=== PATIENT | female | born 1980 | race Caucasian/White ===

== ENCOUNTER 2024-05-19 16:31 | Outpatient (CLI) | payer OTHER, SELFPAY | END 2024-05-19 16:32 | disposition home or self-care (01) | LOC: ANHLAB 16:34 | PROVIDERS: Visit Provider Anesthesiology | DX: Z01.818 Encounter for other preprocedural examination (principal); N92.0 Excessive and frequent menstruation with regular cycle | CPT/HCPCS: 36415; 86850; 86900; 86901 ==

== ENCOUNTER 2024-05-25 00:25 | Day surgery (SDC) | payer OTHER, SELFPAY ==
--- NOTE | 2024-05-18 17:31 | PC.NURSE ---
Report to the Outpatient Waiting Room, entrance under the green pavilion located off [facility], at time 0600 on date 05/25/24. Planned Procedure Time: 0730. Time changes happen often and if your time is changed the preop area will call you the afternoon before. - You and your visitor will be asked to self-screen and do not enter if you have any COVID symptoms. - A mask is optional within the hospital at this time. Patients may have clear liquids (water, carbonated beverages, clear teas, apple juice) until 3 hours prior to surgery with a maximum of 20 ounces. 0430 - No food from midnight until time of surgery - Infants may have breast milk until 4 hours before surgery, formula 6 hours prior to surgery. - Children will be allowed to drink immediately following surgery. If applicable, please bring a bottle or sippy cup to assist with drinking. Juice, water, soda, and popsicles are readily available. For infants on formula, please bring formula the day of surgery. Pacifiers are allowed. Take the following medications with a SIP of water the morning of surgery: None DO NOT STOP ANY OF YOUR OTHER PRESCRIPTION MEDICATIONS PRIOR TO SURGERY ?EXCEPT THE FOLLOWING Medications to discontinue per physician Please hold multivitamins 3 days prior to your surgery Please no make-up, nail turkmen, hairspray, perfume, deodorant, or body powder the day of surgery. No jewelry (including any body piercings) or valuables the day of surgery, leave them at home. Please take a shower or bath the night before, or the morning of, surgery with an antibacterial soap. Wear comfortable, loose fitting clothing. Children are encouraged to wear pajamas. - Jewelry must be removed prior to entering the operating room. Rings and piercings that are not removed may be cut off. - The hospital will not accept responsibility for valuables. - Please leave all valuables, including medications, at home the day of surgery. If you are going home after surgery, a licensed form setter/driver must drive you home. - NO public transportation without another adult if you receive anesthesia. - We recommend that an adult stay with you for 24 hours following discharge. - We also recommend that you do not drive, make important decision, drink alcoholic beverages, or take any drugs that were not prescribed by your health care provider for at least 24 hours after your discharge time. For Pediatric surgeries, we recommend two adults accompany the child home. Follow any additional instructions given to you from your surgeon. If you or anyone in your household have experienced Covid symptoms in the past week, please notify your surgeon or the nurse liaison at the phone number below for possible testing. Telephone instructions given to Patient- Camelia Jones and asked if any additional questions and then verbalized understanding. Patient advised to call surgeon office or pre surgery nurse liaison [phone] if any additional questions.
[2024-05-18 17:38] VITALS: BMI 26.3
--- NOTE | 2024-05-24 20:28 | PM.IMHP ---
H&P: HPI History of Present Illness Date/Time: 05/24/24 20:28 Chief Complaint: AUB Narrative: Camelia is a 43yo P2002, who presents for surgical management of AUB. She has a h/o RSO; denies any menopausal symptoms. She does report her cycles are regular and quite a bit heavier. She it having a cycle for 5-6 days; days 2-3 and very heavy, changing her tampon about every 30-60 minutes, will pass quarter sized clots. She reports feeling more pelvic pressure and pain during her cycles. She has a normal pap 12/2021. She had a normal EMB 03/2024. She was found to have a fibroid uterus on MAIL ROOM US 02/2024; lab work: normal hormones/tsh, not menopausal, mild iron deficiency. She has a stage 1 left breast cancer (hormone positive) and underwent double mastectomy in 2021; all genetic testing was negative. She did not need radiation or chemo. Review of Systems Constitutional: Constitutional: Denies chills, Denies fever(s) and Denies headache(s) Eyes: Eyes: Denies change in vision ENT: Denies dizziness and Denies headache(s) Cardiovascular: Cardiovascular: Denies chest pain and Denies dyspnea Respiratory: Respiratory: Denies cough and Denies dyspnea Gastrointestinal: Gastrointestinal: Denies abdominal pain and Denies change in stool character Genitourinary: Genitourinary: Reports abnormal menses, Reports menorrhagia, Reports dysmenorrhea, Reports pelvic pain, Denies vaginal discharge, Denies vaginal odor and Denies vaginal pruritus Neurologic: Denies dizziness and Denies headache(s) Psychiatric: Psychiatric: Denies anxiety and Denies depression [facility] Past Medical History Medical History Microcalcification of left breast on mammogram Ovarian cyst Surgical History Surgical History Delivery by section H/O bilateral mastectomy left breast cancer 04/2022 H/O gynecological procedure lap--abdominal wall mass - endometriosis H/O gynecological procedure lap--RSO History of breast surgery reconstruction breast 08/2022 Family History Family History Sibling Breast cancer Carcinoma of colon Grandparent No problems noted. Father Carcinoma of colon Heart disease Mother Lymphoma Social History Social History Smoking status: Never smoker Alcohol intake: current Alcohol use details: couple times a year-socially Substance use: never Substance use type: does not use Do You Feel Safe in your Home?: Yes Lack of Transportation: No Lack of Food: Never True Current Housing: I Have Housing Concerned About Future Housing: No Difficulty Paying Gas/Electric Bills: No Difficulty Paying for Meds: No Currently Unemployed: No Education: Trade/Vocational Certificate Difficulty w/ Childcare or Family Care: No Living arrangements: with family Occupation/Education: other Gender identity (if verbalized by the patient): Female Sexual Orientation (if Verbalized by the Patient): Straight or Heterosexual Spiritual care concerns: No Meds Home Medications and Allergies Home Medications Medication Instructions Recorded Confirmed Type sertraline 50 mg tablet 50 mg PO HS 03/24/24 05/18/24 History multivit with minerals-iron 18 1 tablet PO DAILY 05/18/24 05/18/24 History mg-folic ac 400 mcg-vit K 25 mcg tablet (Adults Multivitamin) Allergies Allergy/AdvReac Type Severity Reaction Status Date / Time iodine Allergy Intermediate Hives Verified 05/18/24 17:19 Penicillins Allergy Mild Rash Verified 05/18/24 17:19 Exam Const: General: cooperative, healthy appearing, comfortable and no acute distress Orientation/consciousness: patient oriented x3 Resp: Effort & Inspection: normal respiratory effort Cardio: Rate: regular rate GI: Inspection: normal to inspection G
[2024-05-25] VITALS (11 sets, daily range): BP systolic 92–116; BP diastolic 52–69; PULSE 55–82; RESP 10–18; TEMP 36.3–37.1; O2SAT 98–100; BMI 26.2
[2024-05-25] MEDS: ACETAMINOPHEN 500 MG TABLET 1000 MG PO ×3 (06:34→19:42)
[2024-05-25] MEDS: KETOROLAC 15 MG/ML VIAL (*BKC) IV PUSH (06:34)
--- NOTE | 2024-05-25 07:11 | WPDANESEPPF ---
Anes - Initial Pre Proc Eval Procedure: Operation Date: 05/25/24 07:30 Proposed Procedures p Robotic Assisted Total Laparoscopic Hysterectomy with Right Salpingectomy, Left Salpingo-oophorectomy - Amara Fenton MD Date/Time: 05/25/24 07:11 Surgeon: Amara Fenton MD Pre Op Diagnosis: Abnormal Uterine Bleeding Patient Data Age: 43 Gender: F Height: 1.75 m Weight: 80.9 kg Allergies Allergy/AdvReac Type Severity Reaction Status Date / Time iodine Allergy Intermediate Hives Verified 05/18/24 17:19 Penicillins Allergy Mild Rash Verified 05/18/24 17:19 Home Medications Medication Instructions Recorded Confirmed Type sertraline 50 mg tablet 50 mg PO HS 03/24/24 05/18/24 History multivit with minerals-iron 18 1 tablet PO DAILY 05/18/24 05/18/24 History mg-folic ac 400 mcg-vit K 25 mcg tablet (Adults Multivitamin) Patient hx anesthesia problems: post op nausea/vomiting Family hx anesthesia problems: none Results Review: All pre-operative results and documents have been reviewed as part of the pre-operative evaluation. [facility] Past Medical History Medical History Microcalcification of left breast on mammogram Ovarian cyst Surgical History Surgical History Delivery by section H/O bilateral mastectomy left breast cancer 04/2022 H/O gynecological procedure lap--abdominal wall mass - endometriosis H/O gynecological procedure lap--RSO History of breast surgery reconstruction breast 08/2022 Family History Family History Sibling Breast cancer Carcinoma of colon Grandparent No problems noted. Father Carcinoma of colon Heart disease Mother Lymphoma Social History Social History Smoking status: Never smoker Alcohol intake: current Alcohol use details: couple times a year-socially Substance use: never Substance use type: does not use Do You Feel Safe in your Home?: Yes Lack of Transportation: No Lack of Food: Never True Current Housing: I Have Housing Concerned About Future Housing: No Difficulty Paying Gas/Electric Bills: No Difficulty Paying for Meds: No Currently Unemployed: No Education: Trade/Vocational Certificate Difficulty w/ Childcare or Family Care: No Living arrangements: with family Occupation/Education: other Gender identity (if verbalized by the patient): Female Sexual Orientation (if Verbalized by the Patient): Straight or Heterosexual Spiritual care concerns: No Anes - Eval Final PreProcedure Day of Procedure 05/25/24 07:11 Patient weight: overweight Heart: regular rate and rhythm Lungs: clear to auscultation Airway: Mallampati scale class II Neurological: alert and oriented Last oral intake: >/= 8 hours ASA classification: II Emergent: no Anesthetic plan: proceed Anesthesia type and monitoring: general ETT and standard monitoring Results Review: All pre-operative results and documents have been reviewed as part of the pre-operative evaluation. Informed Consent: The patient's anesthetic plan and its attendant risks and benefits were discussed with the patient/family/POA. Questions were solicited and answers provided to the satisfaction of the patient/family/POA.
--- NOTE | 2024-05-25 07:13 | WPDHPUPDATE1 ---
History and Physical Update Update Date/Time: 05/25/24 07:13 History and Physical has been reviewed, including an updated exam of the patient. There are NO changes in the patient's condition. Risks, benefits, and alternatives have been discussed and questions answered. Patient agrees to proceed with robotic assisted total laparoscopic hysterectomy, left salpingo-oophorectomy, and cystoscopy.
[2024-05-25] MEDS: ceFAZolin 2 GM/D5W 50 ML 2 GM/50 ML BAG IVPB (07:25)
[2024-05-25] MEDS: metroNIDAZOLE 500 MG/ISO 100ML 500 MG/100 ML BAG 100 MG IVPB (07:32)
[2024-05-25 07:35] LABS: BEDSIDEPREGUCG Negative
[2024-05-25] MEDS: SCOPOLAMINE 1 MG PATCH 1 PATCH TRANSDERM (07:36)
[2024-05-25] MEDS: LACTATED RINGERS 1,000 ML 30 ML IV CONT ×2 (07:36→09:35)
[2024-05-25] MEDS: LIDO 1%/EPINEPHRINE 1:100,000 20 ML VIAL 30 ML INFILTRATE (08:14)
--- NOTE | 2024-05-25 09:30 | W.PM.PROC2 ---
Procedure Note - Detailed Date of Procedure 05/25/24 Pre-op Diagnosis Abnormal Uterine Bleeding Fibroid uterus H/o breast cancer Post-op Diagnosis Same Procedure Performed Robotic assisted total laparoscopic hysterectomy with left salpingo-ooporectomy and cystoscopy Surgeon Amara Fenton MD [employer] Mirza Anesthesia General and Local (20cc of 1% lido w/ epi) Findings Cervix: 3cm, Uterus sounded to 8cm; multiple fibroids noted throughout uterus. H/o right salpingo-oophorectomy in the past. Left ovary adhered to posterior uterus and in posterior cul-de-sac (could not visualize the uterosacral ligaments). Endometriosis noted throughout the pelvis; the sigmoid colon was thickly adhered and the posterior cul-de-sac was not visualized (obliterated/unable to visualize either uterosacral ligaments). Small amount of uterine serosa/scar tissue remained adhered to the posterior vaginal wall in the cul-de-sac as I felt like it was better to leave a small amount of tissue than damage the colon necessitating a colostomy-- vaginally a firm nodule ~2-3cm can be palpated at the top of the posterior vaginal wall/cuff. Cuff in tact. Surgical powder was placed at the end, but good hemostasis was noted. Bladder was without masses or defects; easily filled. Bilateral ureteral efflux was noted from the ureters. Fibroid uterus/cervix/left tube and ovary: 161g Description of Procedure Camelia was taken to the operating room where she was placed under general anesthesia without issues. She received 2 g Ancef and 500mg Metronidazole. She was then prepped and draped in the usual sterile fashion in the dorsal lithotomy position with her legs in low Babak stirrups, her arms tucked at her side, with a strap over her chest. A time-out was performed. My attention was turned down below where a taylor catheter was placed. A bivalve speculum was placed within the vagina. The cervix was easily identified and the anterior lip of the cervix was grasped with single-tooth tenaculum. The uterus was then sounded to _cm. The cervix was serially dilated to allow for the KETTY uterine manipulator; which was placed w/o issue (6cm tip with 3cm cervical ring). My gloves were changed and attention was then turned to the abdomen. A 5 mm trocar was placed under direct visualization at [facility] without issue. Once intra-abdominal placement was confirmed, the abdomen was insufflated with carbon dioxide gas. An abdominal survey was performed and the above findings were noted. Two additional ports were placed on the right and left side and the camera port was placed suprapubically under direct visualization without issues. The 5mm port was switched out for the accessory port under direct visualization. The patient was then placed in deep Trendelenburg, with the legs slightly lowered. The robot was then docked. The instruments were placed intra-abdominally under direct visualization. I then un-scrubbed and went to the robotic console. The colon was attempted to be carefully taken down; but dense adhesions were noted. Small areas of the uterus (removing the uterine serosa) was left stuck to the colon; rather than damaging the colon. Cold scissors were used and small bleeders on the uterus were carefully coagulated using the monopolar heat. Only a small amount of the adhesions were taken down and I decided to proceed with starting my hysterectomy on the right side. The ureter was easily identified transperitoneally and well out of the surgical field. The right fallopian tube and ovary were already surgically absent. The round ligament was clamped, coagulated, and transected. The broad ligament was then dissected anteriorly and posteriorly skeletonizing the uterine artery. The bladder flap was then developed on the right side and carried around the left, anteriorly. The uterine artery was then serially clamped and coagulated. Once the vessel was adequately coagulated, it was then transected with good hemostasi
[2024-05-25] MEDS: fentaNYL CITRATE INJ (*CRX) 100 MCG/2 ML VIAL 25 MCG IV PUSH ×2 (11:03→11:06)
--- NOTE | 2024-05-25 11:27 | OBPPTRN ---
Patient transferred to post room #289 via bed. Support person present. Oriented to unit, room, information board, rooming in, admission packet and security measures. Patient verbalizes understanding.
[2024-05-25] MEDS: oxyCODONE HCL (*CRX) 5 MG TAB IR PO (11:46)
[2024-05-25] MEDS: DEXTROSE 5%/LACTATED RINGERS 1,000 ML 125 ML IV CONT (11:47)
[2024-05-25] MEDS: KETOROLAC 30 MG/ML VIAL (*BKC) IV PUSH ×2 (13:34→19:42)
[2024-05-25] MEDS: SIMETHICONE 80 MG TAB.CHEW PO ×2 (13:34→17:42)
[2024-05-25] MEDS: DOCUSATE SODIUM 100 MG CAPSULE PO (17:42)
[2024-05-25] MEDS: SERTRALINE HCL 50 MG TABLET PO (21:00)
[2024-05-25] MEDS: GABAPENTIN 300 MG CAPSULE PO (21:00)
[2024-05-26 00:30] VITALS: BP 96/52; PULSE 54; RESP 16; TEMP 36.8; O2SAT 100
[2024-05-26] MEDS: ACETAMINOPHEN 500 MG TABLET 1000 MG PO ×2 (01:45→08:38)
[2024-05-26 04:15] VITALS: BP 92/66; PULSE 63; RESP 16; TEMP 37.2; O2SAT 99
[2024-05-26 04:44] LABS: Basophils Percent Auto 0.3 % (0.2-1.2); Eosinophils Percent Auto 0.3 % (0-4.4); Hematocrit 37.9 % (37.0-47.0); Hemoglobin 12.2 g/dL (12.0-15.0); Immature Granulocyte Absolute 0.03 K/mm3 (0.00-0.031); Immature Granulocyte Percent A 0.3 % (0-0.5); Lymphocytes Absolute Auto 1.87 K/mm3 (0.9-3.2); Lymphocytes Percent Auto 15.8 % (18.3-44.2); Mean Corpuscular HGB Conc 32.2 g/dl (32-36); Mean Corpuscular Hemoglobin 29.5 pg (26-34); Mean Corpuscular Volume 91.8 fl (80-100); Mean Platelet Volume 10.1 fl (7.4-10.4); Monocytes Percent Auto 8.3 % (2.6-8.5); Neutrophils Absolute Auto 8.9 K/mm3 (1.3-6.7); Platelet Count Result 229 k/mm3 (150-375); Red Blood Count 4.13 M/mm3 (4.2-5.4); Red Cell Distribution Width 12.9 % (11.5-14.5); White Blood Count 11.9 K/mm3 (4.5-10.0)
[2024-05-26 05:02] LABS: Anion Gap 6 mmol/L (4-12); Blood Urea Nitrogen 10 mg/dL (7-17); Calcium 8.4 mg/dL (8.4-10.2); Carbon Dioxide 28 mmol/L (22-30); Chloride 102 mmol/L (98-107); Estimated CRCL calculation 106 ml/min; Estimated Glomerular Filt Rate > 60; Glucose 96 mg/dL (65-110); Potassium 3.7 mmol/L (3.4-5.0); Sodium 136 mmol/L (137-145)
[2024-05-26] MEDS: IBUPROFEN 600 MG TABLET PO (06:27)
--- NOTE | 2024-05-26 07:14 | PM.GYNPNOP ---
HOBBER - A/P Assessment and plan (1) S/P laparoscopic hysterectomy: Code(s): Z90.710 - Acquired absence of both cervix and uterus Status: Acute Postoperative Procedures: Procedures Operation Date: 05/25/24 07:30 Actual Procedure Side Surgeon p Robotic Assisted Total Laparoscopic Hysterectomy, Left Salpingo-oophorectomy, Cystoscopy Left Amara Fenton MD Postoperative day: 1 Postoperative status: doing well Postoperative plan: routine post-op care and discharge Time Spent With Patient Time: Total time spent is greater than 50% in coordination of care (as documented) at patient's floor/unit and/or counseling patient: Time with patient: less than 15 minutes HOBBER- PN:Subj Post-Op Subjective Date/time seen: 05/26/24 07:10 Interval history: POD#1 Camelia reports doing well today. No issues overnight. Her pain is controlled with PO meds. She has tolerated regular diet. She denies any vaginal bleeding. She has voided. She has not passed flatus. She has ambulated and denies any symptoms of anemia. She is noticing hot flashes; took gabapentin last night. Review of Systems Review of Systems: All systems reviewed & are unremarkable except as noted in HPI and below (HPI) Constitutional: Constitutional: Denies chills, Denies fever(s) and Denies headache(s) Eyes: Eyes: Denies change in vision ENT: Denies dizziness and Denies headache(s) Cardiovascular: Cardiovascular: Denies chest pain and Denies rapid heart rate Respiratory: Respiratory: Denies cough Genitourinary: Genitourinary: Denies abnormal vaginal bleeding Neurologic: Denies dizziness and Denies headache(s) Exam Const: General: cooperative, healthy appearing, comfortable and no acute distress Orientation/consciousness: patient oriented x3 Resp: Effort & Inspection: normal respiratory effort Auscultation: clear to auscultation bilaterally Cardio: Rate: regular rate GI: Inspection: normal to inspection and incision ( 4 LSC incisions c/d/i) GI Palp: Yes abdominal tenderness (appropriate) and Yes Soft to palpation Auscultation: normal bowel sounds : Other: normal bleeding on pad Skin: General skin exam: normal color Neuro: General: patient oriented x3 Psych: Appearance: grossly normal Affect: normal affect Attitude: cooperative HOBBER - PN: Obj Data Vital Signs Vital Signs: Vital Signs - 24 hr 05/25/24 07:32 05/25/24 09:35 05/25/24 09:50 Temperature 97.4 F L 97.3 F L Pulse Rate 82 73 64 Respiratory Rate 16 10 L 12 Blood Pressure 116/62 103/69 101/63 Pulse Oximetry 100 100 100 Oxygen Delivery Room Air Simple Face Mask Simple Face Mask Oxygen Flow Rate 10 10 05/25/24 10:05 05/25/24 10:20 05/25/24 10:35 Temperature Pulse Rate 64 63 57 L Respiratory Rate 10 L 12 14 Blood Pressure 100/66 102/64 99/59 L Pulse Oximetry 100 98 99 Oxygen Delivery Room Air Room Air Room Air Oxygen Flow Rate 05/25/24 10:50 05/25/24 11:05 05/25/24 11:45 Temperature 97.9 F Pulse Rate 57 L 55 L 57 L Respiratory Rate 12 12 12 Blood Pressure 95/56 L 100/63 95/58 L Pulse Oximetry 99 99 98 Oxygen Delivery Room Air Room Air Oxygen Flow Rate Intake/Output Intake/Output: Intake & Output 05/22/24 05/23/24 05/24/24 05/25/24 23:59 23:59 23:59 23:59 Intake Total 2150 Output Total 325 Balance 1825 Meds/Results Medications: Active Medications Generic Name Dose Route Start Last Admin Trade Name Freq PRN Reason Stop Dose Admin Acetaminophen 1,000 mg 05/25/24 12:00 05/25/24 13:33 Acetaminophen 500 Mg Tablet PO 1,000 mg Q6HR TATI Administration Diphenhydramine HCl 25 mg 05/25/24 11:20 Diphenhydramine Hcl Inj 50 Mg/Ml Vial IV PUSH Q4H PRN Itching Docusate Sodium 100 mg 05/25/24 17:00 Docusate Sodium 100 Mg Capsule PO BID TATI Gabapentin 300 mg 05/25/24 21:00 Gabapentin 300 Mg Capsule PO QHS TATI Hydromorphone HCl 0.5 mg 05/25/24 11:20 Hydromorp
[2024-05-26 07:40] VITALS: BP 100/66; PULSE 58; RESP 16; TEMP 37.5; O2SAT 99
[2024-05-26] MEDS: SIMETHICONE 80 MG TAB.CHEW PO (08:38)
[2024-05-26] MEDS: DOCUSATE SODIUM 100 MG CAPSULE PO (08:39)
== END 2024-05-26 10:05 | disposition home or self-care (01) ==
LOC: ANHSURGERY 05:54 → ANHOB2 11:22
PROVIDERS: Visit Provider Obstetrics & Gynecology
PROC: (CPT 58571; principal; 2024-05-25 07:30)
DX: D25.1 Intramural leiomyoma of uterus (principal); D25.2 Subserosal leiomyoma of uterus; N80.399 Endometriosis of the pelvic peritoneum, other specified sites, unspecified depth; Z98.890 Other specified postprocedural states; Z85.3 Personal history of malignant neoplasm of breast; Z80.0 Family history of malignant neoplasm of digestive organs; Z80.3 Family history of malignant neoplasm of breast; Z82.49 Family history of ischemic heart disease and other diseases of the circulatory system; Z80.7 Family history of other malignant neoplasms of lymphoid, hematopoietic and related tissues; N88.8 Other specified noninflammatory disorders of cervix uteri
CPT/HCPCS: 58571; S2900; 36415; 80048; 85025; 86850; 86900; 86901; 88307; 99199; A9270; J0690; J1100; J1170; J1200; J1596; J1836; J1885; J2250; J2371; J2405; J2704; J3010; J7030; J7120; J7121